=== PATIENT | male | born 1945 | race Caucasian/White ===

== ENCOUNTER 2019-03-09 08:27 | Day surgery (SDC) | payer MEDICARE, BC ==
[2019-03-09] MEDS ORDERED: Midazolam* 1 MG/ML 2 ML VIAL (2 MG) ONE ×2 (10:59→11:23)
[2019-03-09 11:59] VITALS: BP 158/75
--- NOTE | 2019-03-09 12:12 | OP ---
OPERATIVE NOTE: DATE OF OPERATION: 03/09/19 DATE OF : 49 SURGEON: Andre Tavera M.D. PREOPERATIVE DIAGNOSES: 1. Cataract, right eye. 2. Glaucoma, right eye. POSTOPERATIVE DIAGNOSES: 1. Cataract, right eye. 2. Glaucoma, right eye. OPERATIVE PROCEDURE: Extracapsular cataract extraction with intraocular lens implant and iStent, rig ht eye. PROCEDURE: The patient was brought to the operating room after being given 1/2% Alcaine with epineph rine drops in the preoperative area. The eye was prepped and draped in the usual sterile fashion. S terile drape and eyelid speculum were placed. Again, topical 1/2% Alcaine with epinephrine was given . A paracentesis incision was made at the 9 o'clock position with the No.75 blade. Clear cornea inc ision 2.2 x 2.2-mm was created at the 12 o'clock position starting at the anterior limbus using the 2 .2-mm keratome. The anterior chamber was irrigated with 0.4 mL of 1% non-preservative intracameral l idocaine and filled with DisCoVisc. A capsulorrhexis was completed using the cystotome and the Utrat a forceps. Hydrodissection was performed with balanced salt solution. The lens nucleus was removed w ith the Phacoemulsification handpiece without incident. Cortex was removed with the irrigation-aspir ation handpiece. The capsular bag was re-inflated using DisCoVisc and an SN60WF 18.5 implant was ins erted with the shooter, followed by an iStent inject inserted with its shooter at the 2 and 4 o'clock positions. The pupil is very small, so a Malyugin ring was used to dilate the pupil prior to capsulo rrhexis and removed after insertion of the lens. The irrigation-aspiration handpiece was used to rem ove all residual DisCoVisc. The eye was refilled with balanced salt solution and the wound checked a nd found to be watertight. Topical Maxitrol drops were given. Indication for complex cataract surgery: Pupillary abnormalities requiring pupil dilation device. [id number]/[facility] #: [id number]
[2019-03-09] MEDS ORDERED: acetaZOLAMIDE TAB* 250 MG ONE (12:25)
[2019-03-09] MEDS ORDERED: Cyclopentolate 1% OPTH.SOL* 2 ML BTL ONE (12:25)
[2019-03-09] MEDS ORDERED: Ketorolac 0.5% OPHTH (NF) 0.5 % 5 ML BTL ONE (12:25)
[2019-03-09] MEDS ORDERED: Lidocaine 2% w/ EPI 1:200,000* 20 ML VIAL ONE (12:25)
[2019-03-09] MEDS ORDERED: Lidocaine 1% MPF ** 5 ML VIAL ONE (12:25)
[2019-03-09] MEDS ORDERED: Phenylephrine OPHTH SOL 2.5%* 2 ML ONE (12:25)
[2019-03-09] MEDS ORDERED: Neomycin/Polymy/Dex OPTH.SUSP* MAXITROL 0.1% 5 ML ONE (12:25)
[2019-03-09] MEDS ORDERED: Povidone Iodine 5% OPTH* 30 ML BTL ONE (12:25)
[2019-03-09] MEDS ORDERED: Proparacaine 0.5% OPHTH.SOL* 15 ML BTL ONE (12:25)
[2019-03-11] MEDS ORDERED: Acetaminophen TAB* 325 MG PO PRN (05:00)
== END 2019-03-09 12:02 | disposition home or self-care (01) ==
LOC: OREAST 08:27
PROVIDERS: ATTEND Specialist
DX: H25.811 Combined forms of age-related cataract, right eye (principal); H21.561 Pupillary abnormality, right eye; H40.1311 Pigmentary glaucoma, right eye, mild stage; I10 Essential (primary) hypertension; E78.00 Pure hypercholesterolemia, unspecified; I12.9 Hypertensive chronic kidney disease with stage 1 through stage 4 chronic kidney disease, or unspecified chronic kidney disease; N18.9 Chronic kidney disease, unspecified; E11.9 Type 2 diabetes mellitus without complications
CPT/HCPCS: A9270-GY; C1783; J2250; V2632

== ENCOUNTER 2019-03-16 08:11 | Day surgery (SDC) | payer MEDICARE, BC ==
[~2019-03-16 08:11] MED LIST: Buffered Lidocaine 1% SYRIN* 1 ML/SYRINGE INTRADERM ONE
[2019-03-16] MEDS ORDERED: Midazolam* 1 MG/ML 2 ML VIAL (2 MG) ONE ×2 (10:03→10:06)
[2019-03-16 10:41] VITALS: BP 168/75
--- NOTE | 2019-03-16 10:53 | OP ---
AMENDED REPORT NOW INCLUDES DATE OF OPERATION - ESIGNED BEFORE ADJUSTMENT * DATE OF OPERATION: 03/16/19 - [place] [facility] DATE OF : 49 SURGEON: Andre Tavera M.D. PREOPERATIVE DIAGNOSIS: Cataract and glaucoma, left eye. POSTOPERATIVE DIAGNOSIS: Cataract and glaucoma, left eye. OPERATIVE PROCEDURE: Extracapsular cataract extraction with intraocular lens implant and iStent, left eye. DESCRIPTION OF PROCEDURE: The patient was brought to the operating room after being given 1/2% Alcaine with epinephrine drops in the preoperative area. The eye was prepped and draped in the usual sterile fashion. Sterile drape and eyelid speculum were placed. Again, topical 1/2% Alcaine with epinephrine was given. A paracentesis incision was made at the 3 o'clock position with the No.75 blade. Clear cornea incision 2.2 x 2.2-mm was created at the 6 o'clock position starting at the anterior limbus using the 2.2-mm keratome. The anterior chamber was irrigated with 0.4 mL of 1% non-preservative intracameral lidocaine and filled with DisCoVisc. A capsulorrhexis was completed using the cystotome and the Utrata forceps. Hydrodissection was performed with balanced salt solution. The lens nucleus was removed with the Phacoemulsification handpiece without incident. Cortex was removed with the irrigation-aspiration handpiece. The capsular bag was re-inflated using DisCoVisc and an [id number] implant was inserted with the shooter. The irrigation-aspiration handpiece was used to remove all residual DisCoVisc. a malugyin ring was placed prior to capsulorrhexis because of asmall pupil and removed after insertion of the IOL. after this an I stent inject was placed at the 8 and 10 oclock positions with its shooter.The eye was refilled with balanced salt solution and the wound checked and found to be watertight. Topical Maxitrol drops were given. Indication for complex cataract surgery pupil abnormalities requiring pupil dilation device [id number]/[facility] #: [id number] MTDD
--- NOTE | 2019-03-16 11:10 | OP ---
AMENDED REPORT NOW INCLUDES DATE OF OPERATION - ESIGNED BEFORE ADJUSTMENT * DATE OF OPERATION: 03/16/19 - [place] [facility] DATE OF : 49 SURGEON: Andre Tavera M.D. PREOPERATIVE DIAGNOSIS: Cataract and glaucoma, left eye. POSTOPERATIVE DIAGNOSIS: Cataract and glaucoma, left eye. OPERATIVE PROCEDURE: Extracapsular cataract extraction with intraocular lens and iStent, left eye. PROCEDURE: The patient was brought to the operating room after being given 1/2 % Alcaine with epinephrine drops in the preoperative area. The eye was prepped and draped in the usual sterile fashion. Sterile drape and eyelid speculum were placed. Again, topical 1/2% Alcaine with epinephrine was given. A paracentesis incision was made at the 3 o'clock position with the No. 75 blade. Clear corneal incision 2.2 x 2.2-mm was created at the 6 o'clock position starting at the anterior limbus using the 2.2-mm keratome. The anterior chamber was irrigated with 0.4 mL of 1% non-preservative intracameral lidocaine and filled with DisCoVisc. A capsulorrhexis was completed using the cystotome and the Utrata forceps. Hydrodissection was performed with balanced salt solution. The lens nucleus was removed with the Phacoemulsification handpiece without incident. Cortex was removed with the irrigation-aspiration handpiece. The capsular bag was re-inflated using DisCoVisc and an [id number] 18 implant was inserted with the shooter oriented to the 14 degree meridian. Horizontal reference martha made with the patient in a seated position in the preoperative area. This was followed by an iStent inject placed at the 8 o'clock and 10 o' clock positions with the shooter. The pupil was very small, so a Malyugin ring was used to dilate the pupil prior to capsulorrhexis and removed after insertion of the lens. The irrigation-aspiration handpiece was used to remove all residual DisCoVisc. The eye was refilled with balanced salt solution and the wound checked and found to be watertight. Topical Maxitrol drops were given. [id number]/[facility] #: [id number] MTDD
[2019-03-16] MEDS ORDERED: Lidocaine 1% MPF ** 5 ML VIAL ONE (14:11)
[2019-03-16] MEDS ORDERED: Cyclopentolate 1% OPTH.SOL* 2 ML BTL ONE (14:11)
[2019-03-16] MEDS ORDERED: Povidone Iodine 5% OPTH* 30 ML BTL ONE (14:11)
[2019-03-16] MEDS ORDERED: Lidocaine 2% w/ EPI 1:200,000* 20 ML VIAL ONE (14:11)
[2019-03-16] MEDS ORDERED: Neomycin/Polymy/Dex OPTH.SUSP* MAXITROL 0.1% 5 ML ONE (14:11)
[2019-03-16] MEDS ORDERED: Ketorolac 0.5% OPHTH (NF) 0.5 % 5 ML BTL ONE (14:11)
[2019-03-16] MEDS ORDERED: acetaZOLAMIDE TAB* 250 MG ONE (14:11)
[2019-03-16] MEDS ORDERED: Proparacaine 0.5% OPHTH.SOL* 15 ML BTL ONE (14:11)
[2019-03-16] MEDS ORDERED: Phenylephrine OPHTH SOL 2.5%* 2 ML ONE (14:11)
== END 2019-03-16 10:47 | disposition home or self-care (01) ==
LOC: OREAST 08:11
PROVIDERS: ATTEND Specialist
DX: H25.812 Combined forms of age-related cataract, left eye (principal); H21.562 Pupillary abnormality, left eye; H40.1 Open-angle glaucoma; E78.00 Pure hypercholesterolemia, unspecified; J30.2 Other seasonal allergic rhinitis; G47.33 Obstructive sleep apnea (adult) (pediatric); N18.9 Chronic kidney disease, unspecified; I12.9 Hypertensive chronic kidney disease with stage 1 through stage 4 chronic kidney disease, or unspecified chronic kidney disease; E11.9 Type 2 diabetes mellitus without complications
CPT/HCPCS: A9270-GY; C1783; J2250; V2787

== ENCOUNTER 2023-03-11 00:03 | Inpatient (IN) ==
[2023-03-11] MEDS ORDERED: TENECTEPLASE 50 MG VIAL KIT 5 MG/ML (reconstituted) IV ONE (00:13)
[2023-03-11] MEDS ORDERED: Iodixanol (CONTRAST) 320 MG/ML 100 ML SDV IV ONE (00:19)
[2023-03-11 00:34] LABS: Mean Corpuscular Hemoglobin 27.2 pg (27-33); Mean Corpuscular Hgb Conc 33.4 g/dL (31-36); Mean Corpuscular Volume 81.4 fL (80-97); Mean Platelet Volume 7.4 fL (7.5-11.2); Platelet Count 321 10^3/uL (150-450); Red Blood Count 5.53 10^6/uL (4.06-5.63); Red Cell Distribution Width 17.1 % (12-17); White Blood Count 17.2 10^3/uL (3.6-10.2)
[2023-03-11 00:49] LABS: INR 1.21 (0.88-1.18)
[2023-03-11 00:50] LABS: Urine Appearance Clear; Urine Bilirubin Negative (Negative); Urine Blood 1+ (Negative); Urine Color Colorless; Urine Glucose Negative (Negative); Urine Ketones Negative (Negative); Urine Nitrite Negative (Negative); Urine Protein 2+(100 mg/dL) (Negative); Urine Specific Gravity 1.009 (1.002-1.030); Urine Urobilinogen Negative (Negative)
[2023-03-11 00:53] LABS: Urine Bacteria 1+ (Absent); Urine Red Blood Cell Trace(0-2/hpf) (Absent); Urine White Blood Cell Trace(0-5/hpf) (Absent)
[2023-03-11 00:54] LABS: Albumin 4.2 g/dL (3.2-5.2); Albumin/Globulin Ratio 1.2 (1-3); Calcium 10.5 mg/dL (8.6-10.3); Creatinine, Serum 1.04 mg/dL (0.67-1.17); Globulin 3.4 g/dL (2-4); HDL Cholesterol 32.4 mg/dL; Potassium 3.8 mmol/L (3.5-5.0); Total Bilirubin 0.6 mg/dL (0.2-1.0); Total Protein 7.6 g/dL (6.4-8.9); eGFR CKD-EPI 74.4 (>60)
[2023-03-11] MEDS ORDERED: NS 0.9% 1000 ml BAG 1,000 ML IV SCH (01:00)
[2023-03-11 01:12] LABS: ABS Basophils 0.2 10^3/uL (0.0-0.1); ABS Eosinophils 0.4 10^3/uL (0.0-0.5); ABS Monocytes 1.6 10^3/uL (0.0-1.1); ABS Neutrophils 10.9 10^3/uL (1.5-7.6); ABS Nucleated RBC 0.01 10^3/ul; Eosinophil % 2.4 %; Lymphocyte % 23.4 %; Nucleated Red Blood Cells % 0.1 /100 WBC (0.0-0.4)
[2023-03-11] MEDS ORDERED: Lactated Ringers 1000 ml BAG 500 ML IV ONE (04:15)
[2023-03-11 04:53] LABS: ABS Basophils 0.2 10^3/uL (0.0-0.1); ABS Eosinophils 0.2 10^3/uL (0.0-0.5); ABS Lymphocytes 3.8 10^3/uL (1.0-4.8); ABS Monocytes 1.1 10^3/uL (0.0-1.1); ABS Neutrophils 9.4 10^3/uL (1.5-7.6); ABS Nucleated RBC 0.01 10^3/ul; Eosinophil % 1.3 %; Hematocrit 41.8 % (38-53); Hemoglobin 14.3 g/dL (13.2-16.3); Lymphocyte % 26.1 %; Mean Corpuscular Hemoglobin 28.2 pg (27-33); Mean Corpuscular Hgb Conc 34.1 g/dL (31-36); Mean Corpuscular Volume 82.7 fL (80-97); Mean Platelet Volume 7.4 fL (7.5-11.2); Nucleated Red Blood Cells % 0.1 /100 WBC (0.0-0.4); Platelet Count 271 10^3/uL (150-450); Red Blood Count 5.06 10^6/uL (4.06-5.63); White Blood Count 14.7 10^3/uL (3.6-10.2)
[2023-03-11 05:06] LABS: Activated Partial Thrombo Time 31.3 seconds (26.0-38.0); INR 1.21 (0.88-1.18)
[2023-03-11 05:12] LABS: Albumin 3.7 g/dL (3.2-5.2); Albumin/Globulin Ratio 1.1 (1-3); Calcium 10.1 mg/dL (8.6-10.3); Creatinine, Serum 0.9 mg/dL (0.67-1.17); Globulin 3.3 g/dL (2-4); Magnesium 1.8 mg/dL (1.9-2.7); Potassium 3.7 mmol/L (3.5-5.0); Total Bilirubin 0.7 mg/dL (0.2-1.0); eGFR CKD-EPI 88.5 (>60)
[2023-03-11] MEDS ORDERED: Potassium Chlor 20 meq TAB.ER PO ONE (08:02)
[2023-03-11] MEDS ORDERED: Potassium Chlor 10 meq TAB PO ONE (08:02)
[2023-03-11] MEDS ORDERED: Magnesium Sulfate 2 gm BAG 2 GM/50 ML BAG IVPB ONE (08:02)
[2023-03-11] MEDS: Mometasone 220 MCG MDI INH SCH ×3 (09:23→21:47)
[2023-03-11] MEDS ORDERED: Labetalol IV 5 MG/ML 20 ml VIAL IV PUSH PRN (10:18)
[2023-03-11] MEDS ORDERED: Lactated Ringers 1000 ml BAG 1,000 ML IV SCH (14:00)
[2023-03-11] MEDS ORDERED: Dextrose 50% Syringe 50 ml 25 GM/50 ML SYRINGE IV PUSH PRN (16:15)
[2023-03-11] MEDS: Azelastine 0.15% NASAL(NF) 30 ML BTL BOTH NARES SCH (21:58)
[2023-03-12 04:52] LABS: Hematocrit 44.2 % (38-53); Hemoglobin 14.8 g/dL (13.2-16.3); Mean Corpuscular Hemoglobin 27.2 pg (27-33); Mean Corpuscular Hgb Conc 33.6 g/dL (31-36); Mean Corpuscular Volume 81.1 fL (80-97); Mean Platelet Volume 7.4 fL (7.5-11.2); Platelet Count 268 10^3/uL (150-450); Red Blood Count 5.45 10^6/uL (4.06-5.63); Red Cell Distribution Width 17.2 % (12-17); White Blood Count 15.4 10^3/uL (3.6-10.2)
[2023-03-12 05:09] LABS: Creatinine, Serum 0.78 mg/dL (0.67-1.17); Potassium 3.7 mmol/L (3.5-5.0); eGFR CKD-EPI 92.4 (>60)
[2023-03-12] MEDS ORDERED: Potassium Chlor 10 meq TAB PO ONE (08:07)
[2023-03-12] MEDS ORDERED: Potassium Chlor 20 meq TAB.ER PO ONE (08:07)
[2023-03-12] MEDS: Mometasone 220 MCG MDI INH SCH ×2 (09:18→20:06)
[2023-03-12] MEDS: Enoxaparin 40 MG/0.4 ML SYR SUBCUT SCH (14:52)
[2023-03-12] MEDS ORDERED: Metoprolol Tartrate 5 mg VIAL 5 ml VIAL (1 mg/ml) IV PRN (18:39)
[2023-03-12] MEDS: Azelastine 0.15% NASAL(NF) 30 ML BTL BOTH NARES SCH (21:18)
[2023-03-13 00:16] LABS: Hematocrit 44.9 % (38-53); Hemoglobin 14.9 g/dL (13.2-16.3); Mean Corpuscular Hemoglobin 27.2 pg (27-33); Mean Corpuscular Hgb Conc 33.1 g/dL (31-36); Mean Corpuscular Volume 82.2 fL (80-97); Mean Platelet Volume 7.3 fL (7.5-11.2); Platelet Count 260 10^3/uL (150-450); Red Blood Count 5.46 10^6/uL (4.06-5.63); Red Cell Distribution Width 17.5 % (12-17); White Blood Count 15.3 10^3/uL (3.6-10.2)
[2023-03-13 00:32] LABS: Albumin 3.5 g/dL (3.2-5.2); Creatinine, Serum 0.95 mg/dL (0.67-1.17); Magnesium 1.9 mg/dL (1.9-2.7); Phosphorus 3.5 mg/dL (2.5-5.0); Potassium 3.9 mmol/L (3.5-5.0); Total Protein 6.7 g/dL (6.4-8.9)
[2023-03-13 00:33] LABS: Albumin/Globulin Ratio 1.1 (1-3); Globulin 3.2 g/dL (2-4); Total Bilirubin 0.5 mg/dL (0.2-1.0)
[2023-03-13 01:21] LABS: ABS Basophils 0.1 10^3/uL (0.0-0.1); ABS Eosinophils 0.6 10^3/uL (0.0-0.5); ABS Lymphocytes 5.6 10^3/uL (1.0-4.8); ABS Monocytes 1.2 10^3/uL (0.0-1.1); ABS Neutrophils 7.8 10^3/uL (1.5-7.6); ABS Nucleated RBC 0.02 10^3/ul; Eosinophil % 4.2 %; Lymphocyte % 36.7 %; Nucleated Red Blood Cells % 0.1 /100 WBC (0.0-0.4); RBC Morphology Normal (Normal)
[2023-03-13] MEDS ORDERED: Potassium Chlor 20 meq TAB.ER PO ONE (01:49)
[2023-03-13 05:49] LABS: Hematocrit 51.1 % (38-53); Hemoglobin 17.1 g/dL (13.2-16.3); Mean Corpuscular Hemoglobin 27.9 pg (27-33); Mean Corpuscular Hgb Conc 33.4 g/dL (31-36); Mean Corpuscular Volume 83.5 fL (80-97); Mean Platelet Volume 7.4 fL (7.5-11.2); Platelet Count 274 10^3/uL (150-450); Red Blood Count 6.11 10^6/uL (4.06-5.63); White Blood Count 15.3 10^3/uL (3.6-10.2)
[2023-03-13 05:56] LABS: Calcium 10.9 mg/dL (8.6-10.3); Creatinine, Serum 1.17 mg/dL (0.67-1.17); Magnesium 2.1 mg/dL (1.9-2.7); Potassium 4.3 mmol/L (3.5-5.0); eGFR CKD-EPI 64.6 (>60)
[2023-03-13 06:47] LABS: TSH Ultra Thyroid Stim Horm 4.56 mcIU/mL (0.34-5.60)
[2023-03-13] MEDS: Mometasone 220 MCG MDI INH SCH ×2 (07:37→19:35)
[2023-03-13] MEDS ORDERED: DAPAGLIFLOZIN 10 MG TAB (NF) PO SCH (09:00)
[2023-03-13] MEDS: Enoxaparin 40 MG/0.4 ML SYR SUBCUT SCH (13:08)
[2023-03-13] MEDS ORDERED: Metoprolol Tartrate 5 mg VIAL 5 ml VIAL (1 mg/ml) IV PRN (15:54)
[2023-03-13] MEDS: Azelastine 0.15% NASAL(NF) 30 ML BTL BOTH NARES SCH (20:37)
[2023-03-14 05:59] LABS: Hemoglobin 16.2 g/dL (13.2-16.3); Mean Corpuscular Hemoglobin 28.1 pg (27-33); Mean Corpuscular Hgb Conc 33.7 g/dL (31-36); Mean Corpuscular Volume 83.4 fL (80-97); Mean Platelet Volume 7.6 fL (7.5-11.2); Platelet Count 295 10^3/uL (150-450); Red Blood Count 5.76 10^6/uL (4.06-5.63); Red Cell Distribution Width 17.7 % (12-17); White Blood Count 16.2 10^3/uL (3.6-10.2)
[2023-03-14 06:29] LABS: Calcium 10.7 mg/dL (8.6-10.3); Creatinine, Serum 1.13 mg/dL (0.67-1.17); eGFR CKD-EPI 67.4 (>60)
[2023-03-14 06:35] LABS: Potassium 4.6 mmol/L (3.5-5.0)
[2023-03-14] MEDS: Mometasone 220 MCG MDI INH SCH ×2 (07:45→19:22)
[2023-03-14] MEDS: Enoxaparin 40 MG/0.4 ML SYR SUBCUT SCH (15:52)
[2023-03-14] MEDS ORDERED: Metoprolol Tartrate 5 mg VIAL 5 ml VIAL (1 mg/ml) IV PRN (19:06)
[2023-03-14] MEDS: Azelastine 0.15% NASAL(NF) 30 ML BTL BOTH NARES SCH (21:35)
[2023-03-15 05:43] LABS: ABS Basophils 0.2 10^3/uL (0.0-0.1); ABS Eosinophils 0.4 10^3/uL (0.0-0.5); ABS Lymphocytes 4.3 10^3/uL (1.0-4.8); ABS Monocytes 1.1 10^3/uL (0.0-1.1); ABS Neutrophils 9.2 10^3/uL (1.5-7.6); ABS Nucleated RBC 0.01 10^3/ul; Eosinophil % 2.7 %; Hematocrit 43.5 % (38-53); Hemoglobin 14.9 g/dL (13.2-16.3); Lymphocyte % 28.3 %; Mean Corpuscular Hemoglobin 28.3 pg (27-33); Mean Corpuscular Hgb Conc 34.2 g/dL (31-36); Mean Corpuscular Volume 82.6 fL (80-97); Mean Platelet Volume 7.4 fL (7.5-11.2); Platelet Count 270 10^3/uL (150-450); Red Blood Count 5.26 10^6/uL (4.06-5.63); Red Cell Distribution Width 17.3 % (12-17); White Blood Count 15.2 10^3/uL (3.6-10.2)
[2023-03-15 06:23] LABS: Calcium 10.2 mg/dL (8.6-10.3); Creatinine, Serum 1.01 mg/dL (0.67-1.17); Magnesium 1.9 mg/dL (1.9-2.7); Potassium 4.3 mmol/L (3.5-5.0); eGFR CKD-EPI 77.1 (>60)
[2023-03-15] MEDS: Mometasone 220 MCG MDI INH SCH ×2 (07:40→19:10)
[2023-03-15 18:08] VITALS: BP 136/92
[2023-03-15] MEDS: Enoxaparin 40 MG/0.4 ML SYR SUBCUT SCH (19:30)
[2023-03-15] MEDS: Azelastine 0.15% NASAL(NF) 30 ML BTL BOTH NARES SCH (20:56)
[2023-03-16 05:16] LABS: Hematocrit 45.6 % (38-53); Hemoglobin 15.4 g/dL (13.2-16.3); Mean Corpuscular Hemoglobin 27.8 pg (27-33); Mean Corpuscular Hgb Conc 33.8 g/dL (31-36); Mean Corpuscular Volume 82.4 fL (80-97); Mean Platelet Volume 7.4 fL (7.5-11.2); Platelet Count 281 10^3/uL (150-450); Red Blood Count 5.54 10^6/uL (4.06-5.63); Red Cell Distribution Width 17.7 % (12-17); White Blood Count 15.2 10^3/uL (3.6-10.2)
[2023-03-16 05:17] LABS: ABS Basophils 0.1 10^3/uL (0.0-0.1); ABS Eosinophils 0.4 10^3/uL (0.0-0.5); ABS Lymphocytes 5.3 10^3/uL (1.0-4.8); ABS Monocytes 0.9 10^3/uL (0.0-1.1); ABS Neutrophils 8.5 10^3/uL (1.5-7.6); ABS Nucleated RBC 0.01 10^3/ul; Eosinophil % 2.7 %; Lymphocyte % 34.7 %; Nucleated Red Blood Cells % 0.1 /100 WBC (0.0-0.4)
[2023-03-16 05:31] LABS: Calcium 10.1 mg/dL (8.6-10.3); Creatinine, Serum 1.12 mg/dL (0.67-1.17); Potassium 4.3 mmol/L (3.5-5.0); eGFR CKD-EPI 68.1 (>60)
[2023-03-16] MEDS: Mometasone 220 MCG MDI INH SCH (10:13)
[2023-03-16] MEDS: Enoxaparin 40 MG/0.4 ML SYR SUBCUT SCH (13:31)
== END 2023-03-16 14:31 | disposition home or self-care (01) | DRG 61 ==
LOC: ED 00:03 → SUATTDRO 00:46 → EDHOLD 00:46 → ICU 02:01
PROVIDERS: ADMIT Internal Medicine; ATTEND Internal Medicine

== ENCOUNTER 2023-12-08 12:15 | Observation (INO) ==
[2023-12-08 13:19] LABS: ABS Basophils 0.1 10^3/uL (0.0-0.1); ABS Eosinophils 0.1 10^3/uL (0.0-0.5); ABS Lymphocytes 2.6 10^3/uL (1.0-4.8); ABS Monocytes 0.7 10^3/uL (0.0-1.1); ABS Neutrophils 5.5 10^3/uL (1.5-7.6); ABS Nucleated RBC 0.01 10^3/ul; Eosinophil % 0.6 %; Hematocrit 41.9 % (38-53); Hemoglobin 13.5 g/dL (13.2-16.3); Lymphocyte % 28.9 %; Mean Corpuscular Hemoglobin 26.3 pg (27-33); Mean Corpuscular Hgb Conc 32.3 g/dL (31-36); Mean Corpuscular Volume 81.4 fL (80-97); Mean Platelet Volume 7.5 fL (7.5-11.2); Nucleated Red Blood Cells % 0.1 %/100WBC (0.0-0.8); Platelet Count 311 10^3/uL (150-450); Red Blood Count 5.14 10^6/uL (4.06-5.63); Red Cell Distribution Width 18.7 % (12-17)
[2023-12-08 13:31] LABS: INR 1.75 (0.83-1.13)
[2023-12-08 14:07] LABS: Albumin 3.1 g/dL (3.2-5.2); Calcium 9.8 mg/dL (8.6-10.3); Creatinine, Serum 0.89 mg/dL (0.67-1.17); Potassium 4.5 mmol/L (3.5-5.0); Total Protein 6.1 g/dL (6.4-8.9); eGFR CKD-EPI 88.8 (>60)
[2023-12-08] MEDS: Metoprolol Tartrate 5 mg VIAL 5 ml VIAL (1 mg/ml) IV ONE (14:07)
[2023-12-08] MEDS: Magnesium Sulfate 2 gm BAG 2 GM/50 ML BAG IVPB ONE (14:08)
[2023-12-08 15:07] LABS: High Sensitivity Troponin 1 Hr 79 pg/mL (<20)
[2023-12-08] MEDS ORDERED: Senna TAB 8.6 mg TAB PO PRN (15:46)
[2023-12-08] MEDS ORDERED: Polyethylene Glycol 3350 17 GM PACKET PO PRN (15:46)
[2023-12-08] MEDS ORDERED: Albuterol HFA INHALER 8 gm MDI INH PRN (15:52)
[2023-12-08] MEDS ORDERED: Furosemide 20 mg/2 ml IV VIAL IV SLOW PU ONE (15:52)
[2023-12-08] MEDS: Mometasone 220 MCG MDI INH SCH (19:35)
[2023-12-08 19:57] VITALS: BP 117/87
[2023-12-09] MEDS ORDERED: Potassium Chlor 20 meq TAB.ER PO SCH (09:00)
== END 2023-12-08 21:27 | disposition left against medical advice (07) ==
LOC: EDHOLD 12:15 → ED 12:15 → EDHOLD 21:26
PROVIDERS: ADMIT Internal Medicine; ATTEND Internal Medicine